=== PATIENT | female | born 1965 | race Caucasian/White ===

== ENCOUNTER 2018-06-11 14:49 | Outpatient (CLI) | payer BC | END 2018-06-11 14:50 | disposition home or self-care (01) | LOC: BICMAMMO 14:49 | PROVIDERS: ATTEND Obstetrics & Gynecology | DX: Z12.31 Encounter for screening mammogram for malignant neoplasm of breast (principal); R92.1 Mammographic calcification found on diagnostic imaging of breast | CPT/HCPCS: 77063; 77067 ==

== ENCOUNTER 2022-11-21 09:51 | Outpatient (CLI) | payer BC ==
[~2022-11-21 09:51] MED LIST: Iopamidol 370 76% 100 ML VIAL ONE
== END 2022-11-21 09:52 | disposition home or self-care (01) ==
LOC: CT 09:51
PROVIDERS: ATTEND Physician Assistant Medical
DX: R19.7 Diarrhea, unspecified (principal); R31.9 Hematuria, unspecified; R30.0 Dysuria; K76.0 Fatty (change of) liver, not elsewhere classified; M89.9 Disorder of bone, unspecified
CPT/HCPCS: 74178; Q9967

== ENCOUNTER 2023-08-28 13:53 | Outpatient (CLI) | payer BC | END 2023-08-28 13:54 | disposition home or self-care (01) | LOC: BICMRI 13:53 | PROVIDERS: ATTEND Orthopaedic Surgery | DX: M85.08 Fibrous dysplasia (monostotic), other site (principal); M76.01 Gluteal tendinitis, right hip; M76.02 Gluteal tendinitis, left hip | CPT/HCPCS: 72195 ==